=== PATIENT | female | born 1985 | race Two or more races ===

== ENCOUNTER → 2024-07-03 | Outpatient (CLI) | payer MEDICAID, SELFPAY ==
--- NOTE | 2024-07-03 16:00 | XR_ITS ---
Examination: Breast ultrasound, unilateral, left complete Date and time of exam: July 03, 2024 1542 hours INDICATIONS: Left breast pain 1.5 years, 2:00 nodule 8 mm 10:00 nodule 8 mm 10:00 nodule 4 mm retroareolar nodule 8 mm on ultrasound August 26, 2023 Technique: Real-time burk scale ultrasonographic imaging performed left breast including all 4 quadrants as well as nipple retroareolar and axillary region. Findings: 2:00 oval mass lobular margins 8 x 4 x 7 mm 10:00 cyst 4 x 3 x 4 mm IMPRESSION: BI-RADS Category 3: Probably benign findings Recommend 1 additional 6 month left breast sonogram follow-up to document stability of 2:00 nodule described above
== END | disposition home or self-care (01) ==
LOC: CDIM 15:30
PROVIDERS: PCP Physician Assistant; Referring Provider Physician Assistant; Visit Provider Physician Assistant
DX: N63.21 Unspecified lump in the left breast, upper outer quadrant (principal)
CPT/HCPCS: 76641

== ENCOUNTER → 2024-09-14 | Outpatient (CLI) | payer MEDICAID, SELFPAY ==
--- NOTE | 2024-09-14 15:30 | XR_ITS ---
Examination: Screening digital mammography, bilateral Computer aided detection 3-D breast Tomosynthesis, bilateral Date and time of exam: September 14, 2024 1715 hours Comparison July 14, 2023 Indication: Screening Technique: Nonmagnified MLO, CC views of the breasts to been obtained, reconstructed from 3-D Tomosynthesis images. R2 computer aided detection program utilized for evaluation of suspicious masses and/or abnormal calcifications. 3-D Tomosynthesis images obtained. Findings: The breasts are heterogeneously dense, which may obscure small masses Benign calcifications No interval suspicious masses Impression: BI-RADS category II: Benign Findings. Recommend 1 year follow-up mammogram.
== END | disposition home or self-care (01) ==
LOC: CDIM 14:57
PROVIDERS: Referring Provider Physician Assistant; Visit Provider Physician Assistant
DX: Z12.31 Encounter for screening mammogram for malignant neoplasm of breast (principal); R92.323 Mammographic fibroglandular density, bilateral breasts; R92.1 Mammographic calcification found on diagnostic imaging of breast
CPT/HCPCS: 77063; 77067

== ENCOUNTER → 2025-03-07 | Outpatient (CLI) | payer MEDICAID, SELFPAY ==
--- NOTE | 2025-03-07 14:30 | XR_ITS ---
Examination: Breast ultrasound, unilateral, left complete Date and time of exam: March 07, 2025, 1439 hours INDICATIONS: 2:00 nodule 8 x 7 mm on left breast sonogram July 03, 2024. Technique: Real-time burk scale ultrasonographic imaging performed left breast including all 4 quadrants as well as nipple retroareolar and axillary region. Findings: 2:00 nodule circumscribed 9 x 7 mm 10:00 cyst 2 x 3 mm IMPRESSION: BI-RADS Category 2: Benign findings
== END | disposition home or self-care (01) ==
PROVIDERS: PCP Physician Assistant; Referring Provider Physician Assistant; Visit Provider Physician Assistant
DX: N63.21 Unspecified lump in the left breast, upper outer quadrant (principal)
CPT/HCPCS: 76641

== ENCOUNTER 2025-05-19 20:50 | Emergency (ER) | payer MEDICAID, SELFPAY ==
[2025-05-19 20:58] VITALS: BP 172/95; PULSE 94; RESP 18; TEMP 36.9; O2SAT 98; BMI 26.4
--- NOTE | 2025-05-19 21:11 | EKG_ITS ---
[facility] Test Date: 2025-05-19 Pat Name: ESTELA DON Department: Room: - Gender: Female [employer]: : 1985 Requested By: Emiliano Talbert Order Number: [id number] Reading MD: Emiliano Talbert Measurements Intervals [place] Rate: 76 P: 38 LA: 134 QRS: 65 QRSD: 90 T: 43 QT: 354 QTc: 400 Interpretive Statements SINUS RHYTHM No previous ECG available for comparison /store/S0/[id number].pdf
--- NOTE | 2025-05-19 21:11 | PD.EDRME ---
Rapid Medical Screening Exam RME Arrival date/time: 05/19/25 20:50 This is a case of 40-year-old female with history of diabetes came in in the emergency room due to chest pain headache dizziness ear pain and sore throat today persistence of the symptoms this patient decided to stop consult here in the emergency room Chief Complaint: Dizziness Time Seen by Provider: 05/19/25 20:52 Vital signs: Vital Signs Temperature 98.5 F 05/19/25 20:58 Pulse Rate 94 05/19/25 20:58 Respiratory Rate 18 05/19/25 20:58 Blood Pressure 172/95 H 05/19/25 20:58 Pulse Oximetry (%) 98 05/19/25 20:58 Oxygen Delivery Method Room Air 05/19/25 20:58 Exam: Neurological exam is normal awake alert oriented x 4 no focal deficit GCS 15/15 steady gait heart normal rate regular rhythm no murmur clear breath sound Clinical Impression: Dizziness chest pain
[2025-05-19 21:52] LABS: Basophils # (Auto) 0.1 Thou/mm3 (0.0-0.2); Basophils % (Auto) 1 % (0-2.5); Eosinophils # (Auto) 0.1 Thou/mm3 (0.0-0.5); Eosinophils % (Auto) 1 % (0-10); Hematocrit 32.8 % (36.0-46.0); Hemoglobin 10.1 g/dL (12.0-16.0); Immature Granulocytes Auto 0.10 Thou/mm3 (0.00-0.00); Lymphocytes # (Auto) 2.4 Thou/mm3 (1.0-4.8); Lymphocytes % (Auto) 17 % (10-50); Mean Corpuscular HGB Conc 30.8 g/dl (31.0-37.0); Mean Corpuscular Hemoglobin 22.9 pg (25.0-35.0); Mean Corpuscular Volume 74 fL (80-100); Monocytes # (Auto) 0.8 Thou/mm3 (0.0-0.8); Monocytes % (Auto) 6 % (0-12); Neutrophils # (Auto) 10.3 Thou/mm3 (1.8-7.7); Neutrophils % (Auto) 75 % (37-80); Nucleated Red Blood Cell # 0.02 Thou/mm3 (0.00-0.00); Nucleated Red Blood Cell % 0 /100 WBC (0); Platelet Count 399 Thou/mm3 (140-440); RDW Standard Deviation 46.3 fL (36.4-46.3); Red Blood Count 4.42 Miln/mm3 (4.00-5.20); White Blood Count 13.8 Thou/mm3 (3.6-11.0)
[2025-05-19 22:13] LABS: Alanine Aminotransferase 17 U/L (10-49); Albumin, Serum 4.8 gm/dL (3.5-5.0); Albumin/Globulin Ratio 1.7 (1.2-2.2); Alkaline Phosphatase 59 U/L (46-116); Anion Gap 11 (7-16); Aspartate Amino Transferase 24 U/L (0-34); BUN/Creatinine Ratio 10 Ratio (12-20); Bilirubin,Total 0.3 mg/dL (0.3-1.2); Blood Urea Nitrogen 6 mg/dL (9-23); Calcium 9.8 mg/dL (8.3-10.6); Calcium (Corrected) 9.8 mg/dL (8.5-10.1); Carbon Dioxide 22.9 mMol/L (20.0-31.0); Chloride 108 mMol/L (98-107); Creatinine (Component) 0.6 mg/dL (0.6-1.3); Estimated Creatinine Clearance 104.3 mL/min (>60); Globulin 2.8 gm/dL (2.3-3.5); Glucose 123 mg/dL (74-106); Osmolality,Calculated 281 (275-295); Potassium 3.9 mMol/L (3.4-5.1); Sodium 142 mMol/L (136-145); Total Protein 7.6 gm/dL (5.7-8.2); Troponin I < 0.002 ng/mL (0.0-0.045); eGFR > 60 See Note
[2025-05-19 22:42] LABS: Collection Type, Urine Clean Catch
--- NOTE | 2025-05-19 22:42 | PD.EDDIZZY ---
ED Dizzyness RME/HPI General Chief Complaint: Dizziness Stated Complaint: DIZZINESS, SOB, TIGHTNESS TO THROAT, LEFT EAR Time Seen by Provider: 05/19/25 20:52 Arrival date/time: 05/19/25 20:50 RME / HPI RME / HPI Narrative: 05/19/25 20:50 This is a case of 40-year-old female with history of diabetes came in in the emergency room due to chest pain headache dizziness ear pain and sore throat today persistence of the symptoms this patient decided to stop consult here in the emergency room DR. BLANKENSHIP MAIN ED EVALUATION: Patient presenting with intermittent lightheadedness throughout the week with associated palpitations, no chest pains, now presents with throat constricting sensation with slight difficulty swallowing and mild difficulty breathing. No fever, chills, vomiting or diarrhea. No LE swelling. Denies any recent change in diet, medication, lotions, or cosmetics. PMH: Type II DM, HTN PSH: Allergies: NKDA Social: Negative Exam: Neurological exam is normal awake alert oriented x 4 no focal deficit GCS 15/15 steady gait heart normal rate regular rhythm no murmur clear breath sound Impression: Dizziness chest pain Related Data Home Medications ?Medication ?Instructions ?Recorded ?Confirmed vit,calcium 128-iron fum 1 tab PO QDAY 11/06/21 12/10/21 28 mg iron-folic acid 800 mcg tablet metformin 500 mg tablet 500 mg PO BID 12/10/21 12/10/21 Previous Rx's ?Medication ?Instructions ?Recorded acetaminophen 120 mg-codeine 12 5 ml PO Q6H PRN pain #120 mL 05/20/25 mg/5 mL oral solution prednisolone 15 mg/5 mL oral 45 mg (15 mL) PO QDAY 5 days #75 mL 05/20/25 solution Allergies Allergy/AdvReac Type Severity Reaction Status Date / Time No Known Allergies Allergy Verified 05/19/25 20:52 Review of Systems Review of Systems Systems Reviewed: All systems reviewed, normal except as documented Past Medical History Past Medical History CARDIAC: Positive Hypertension REPRODUCTIVE: Positive Previous Pregnancies ENDOCRINE: Positive Diabetes Mellitus Type 2 OTHER HISTORY: Positive Hospitalization (CHILDBIRTH) Surgical History SURGICAL: Positive Section ED Exam Narrative Physical exam: GEN. APPEARANCE: The patient is alert awake oriented X-3 mildly tachycardic c/o throat constriction Patient has good eye contact. Patient is cooperative. VITALS: All vitals were reviewed and the pulse ox is 98%, which is normal according to my interpretation HEENT: Normocephalic, Posterior pharyngeal injection with erythematous vesicles, no stridor, mildly tender submandibular right adenopathy. Pupils are equal and reactive. Oral mucosa is moist. NECK: Supple, nontender, no meningismus, no JVD. There is no thyromegaly and no lymphadenopathy. CHEST: Nontender on palpation no deformity and no crepitus. CARDIOVASCULAR: Tachycardic, no murmur or gallop rub or extra beats. LUNGS: Clear to auscultation bilaterally with symmetrical chest rise. No laboring tachypnea or wheezing. No intercostal subcostal retraction. No rales and no rhonchi. ABDOMEN: Soft, flat, nontender to palpation, no guarding or rebound tenderness. There are no abnormal masses palpated. No pulsatile masses or bruits. Active and normal bowel sounds. EXTREMITIES: Normal inspection and palpation. No edema. No cyanosis. Patient is able to move all 4 extremities well SKIN: Warm and dry, no rashes noted. MUSCULOSKELETAL: No lumbar or midline bony tenderness. There is no edema or calf tenderness. No paraspinal muscle spasm or tenderness. NEURO: Cranial nerves II through XII grossly intact. There are no focal neurologic deficits noted. GCS is 15 PSYCHIATRIC: Patient is in normal mood and affect, cooperative. LYMPHATICS: No major lymphadenopathy noted. Course Quality Measures none Orders Category Date Time Status EKG (ED ONLY) *Do not use* NOW Care 05/19/25 21:11 Completed EKG (ED Only) Stat Exams 05/19/25 21:11 Ordered XR chest 1V portable Stat Exams 05/19/25 23:16 Completed CBC Stat Lab 05/19/25 21:32 Completed CBC Stat Lab 05/19/25 23:40 Completed Comprehensive Metabolic Panel Stat Lab 05/19/25 21:32 Completed Drug Screen,Urine Stat Lab 05/19/25 22:21 Completed HCG Qualitative,Urine Stat Lab 05/19/25 22:21 Completed Influenza A & B Rapid Panel Stat Lab 05/19/25 23:00 Completed Magnesium Stat Lab 05/19/25 23:40 Completed Troponin I Stat Lab 05/19/25 21:32 Completed Troponin I Stat Lab 05/19/25 23:40 Completed Urinalysis Stat Lab 05/19/25 22:21 Completed Dexamethasone Inj [Decadron Inj] Med 05/19/25 23:14 Discontinued 10 mg IVP X1 ONE Sodium Chloride 0.9% 1000 ml [Ns] 1,000 ml Med 05/19/25 23:14 Discontinued IV 999 mls/hr Vital Signs Vital signs: Vital Signs Temperature 98.5 F 05/19/25 20:58 Pulse Rate 94 05/19/25 20:58 Respiratory Rate 18 05/19/25 20:58 Blood Pressure 172/95 H 05/19/25 20:58 Pulse Oximetry (%) 98 05/19/25 20:58 Oxygen Delivery Method Room Air 05/19/25 20:58 Dizziness MDM Narrative MDM Narrative:: Scribe Attestation: Brooklyn Osorio, am scribing for and in the presence of Dr. Davila. Provider Notation: Although this document has been carefully reviewed, there may still be some phonetic and other typographical errors. These errors are purely grammatical due to imperfections in the software program and should not be construed in any way to compromise the substance of the patient's medical care during this visit. Patient presenting with intermittent lightheadedness throughout the week with associated palpitations, no chest pains, now presents with throat constricting sensation with slight difficulty swallowing and mild difficulty breathing. No fever, chills, vomiting or diarrhea. Please see PE findings. Laboratory markers, including CBC, serum chemistries, and UA were unremarkable. CXR was unremarkable. Patient was treated with IV steroids fluids and remained otherwise stable throughout ED course. Baseline EKG without brugada, long QT interval, or arrhythmia. Additionally no findings of accessory pathway. Suspect throat constricting sensation due to viral infection, based on oropharygeal findings. Patient was observed for an extended period of time and considered stable for discharge. Will be discharged to home on Prelone and Tylenol with Codeine for symptomatic viral URI, recommend outpatient F/U for Echo/Holter. Final diagnoses include Acute viral pharyngitis and Palpitations. Patient data External records reviewed:: [facility] previous records (No prior ED records available for review) Clinical information provided by:: patient Social determinants that could affect healthcare access:: none Patient has the following chronic illnesses:: Type II DM, HTN How is presenting disease/condition affected by chronic disease/condition?: exacerbated by Evaluation data The following diagnostics were reviewed and interpreted by me:: lab results, radiology exam(s) and EKG tracing(s) (EKG at 21:19 shows normal sinus rhythm at 76, normal axis, no ectopy, no signs of acute ischemia, per my interpretation.) Lab and/or radiology exams considered but not ordered:: None Interpretation Summary: RADIOLOGY Chest X-Ray: FINDINGS: Normal heart size Lungs are clear The osseous structures are intact IMPRESSION: No active disease Medications / Prescriptions Medications or Prescriptions considered but not ordered:: None Medication administrations:: Medication Administration History Discontinued Medications Dexamethasone Sodium Phosphate (Dexamethasone Sod Phos Inj 10 Mg/Ml Vial) 10 mg IVP X1 ONE Stop: 05/19/25 23:15 Last Admin: 05/19/25 23:43 Dose: 10 mg Documented By: ADRIA Sodium Chloride (Ns) 1,000 mls @ 999 mls/hr IV .Q1H1M ONE Stop: 05/20/25 00:14 Last Infusion: 05/20/25 00:44 Dose: Infused Documented By: Admin: 05/19/25 23:43 Dose: 999 mls/hr Documented By: DT See above if any Consultations Consultation(s) initiated? (list below): No Diagnosis Dizziness Differential Diagnosis: benign paroxysmal positional vertigo, orthostatic hypotension, acute vestibular neuronitis and other (Sepsis, Dehydration, Pharyngitis, Laryngitis) Most likely diagnosis given after review of the tests above:: Acute viral pharyngitis, Palpitations Admission Indicated Admission indicated?: not indicated Explain why admission is indicated or not indicated:: Patient does not meet admission criteria Admission Request Was there a request for admission?: No Disposition Plan Disposition Plan: Discharge Discharge Attestation Discharge Attestation: The patient and all family members were given an opportunity to ask questions and understood the discharge instructions. Discharge instructions specifically effects, indications for sooner follow up or return to the emergency department, and the expected course of current diagnosis. Patient condition: Stable Critical Care Time Critical Care Time Critical Care Time: No Discharge Plan Plan Patient Disposition: HOME (Self Care) Discharge Disposition comment: Stable Prescriptions/Referrals Prescriptions/Med Rec: New prednisolone 15 mg/5 mL solution 45 mg PO QDAY 5 Days Qty: 75 0RF acetaminophen-codeine 120-12 mg/5 mL solution 5 ml PO Q6H PRN (Reason: pain) Qty: 120 0RF No Action metformin 500 mg Tablet 500 mg PO BID vit no.[id number] 28 mg iron- 800 mcg Tablet 1 tab PO QDAY Referrals: Nely Chavarria PA-C [Primary Care Provider] - In 1 week Problem List Clinical Impression: Acute viral pharyngitis, Palpitations Impression comment: Viral pharyngitis/palpitations Patient/Caregiver Discharge Instructions Discharge Activity: activity as tolerated Diet Instructions: Clear liquid diet x 24 hours and advance as tolerated. Education Materials: ED Palpitations, ED Pharyngitis, Report Pending Additional Instructions: Medication as directed. Increase fluids. Follow-up with primary care doctor for referral to [facility] for outpatient Holter echocardiography. Print Language: Belgian Stand Alone Forms: Joanie Award Info., Patient Portal Info Letter
[2025-05-19 22:52] VITALS: BP 118/86; PULSE 79; RESP 14; O2SAT 99
[2025-05-19 22:53] LABS: Bilirubin,Urine Negative (Negative); Blood,Urine Negative (Negative); Clarity,Urine Clear (Clear/Hazy); Color,Urine Colorless (Lt Yel-Yel); Glucose, Urine Negative (Negative); Ketones,Urine Negative (Negative); Leukocyte Esterase,Urine Negative (Negative); Nitrite,Urine Negative (Negative); PH,Urine 6.5 (5.0-7.0); Protein,Urine Negative (Neg - Trace); RBC,Urine < 1 /hpf (0-3); Specific Gravity,Urine 1.006 (1.001-1.035); Squamous Epithelial Cell,Urine 1 /hpf (0-5); Urobilinogen,Urine Negative mg/dL (0.0-1.0); WBC,Urine < 1 /hpf (0-5)
[2025-05-19 22:56] LABS: HCG Qualitative,Urine Negative
--- NOTE | 2025-05-19 23:16 | XR_ITS ---
EXAMINATION: AP chest single view TECHNIQUE: AP portable upright chest single view Date and time: May 19, 2025, 11:18 p.m. INDICATION: Chest pain today. FINDINGS: Normal heart size Lungs are clear The osseous structures are intact IMPRESSION: No active disease
[2025-05-19] MEDS: SODIUM CHLORIDE 0.9% 1000 ML 1,000 ML 999 ML IV (23:43)
[2025-05-19] MEDS: DEXAMETHASONE SOD PHOS INJ 10 MG/ML VIAL IVP (23:43)
[2025-05-19 23:47] LABS: Influenza A Ag Negative; Influenza B Ag Negative
[2025-05-19 23:49] LABS: Basophils # (Auto) 0.1 Thou/mm3 (0.0-0.2); Basophils % (Auto) 1 % (0-2.5); Eosinophils # (Auto) 0.0 Thou/mm3 (0.0-0.5); Eosinophils % (Auto) 0 % (0-10); Hematocrit 30.5 % (36.0-46.0); Hemoglobin 9.5 g/dL (12.0-16.0); Immature Granulocytes Auto 0.08 Thou/mm3 (0.00-0.00); Lymphocytes # (Auto) 1.7 Thou/mm3 (1.0-4.8); Lymphocytes % (Auto) 15 % (10-50); Mean Corpuscular HGB Conc 31.1 g/dl (31.0-37.0); Mean Corpuscular Hemoglobin 23.1 pg (25.0-35.0); Mean Corpuscular Volume 74 fL (80-100); Monocytes # (Auto) 0.5 Thou/mm3 (0.0-0.8); Monocytes % (Auto) 5 % (0-12); Neutrophils # (Auto) 8.5 Thou/mm3 (1.8-7.7); Neutrophils % (Auto) 78 % (37-80); Nucleated Red Blood Cell # 0.00 Thou/mm3 (0.00-0.00); Nucleated Red Blood Cell % 0 /100 WBC (0); Platelet Count 319 Thou/mm3 (140-440); RDW Standard Deviation 46.5 fL (36.4-46.3); Red Blood Count 4.11 Miln/mm3 (4.00-5.20); White Blood Count 10.9 Thou/mm3 (3.6-11.0)
[2025-05-20 00:10] LABS: Amphetamine/Methamp Scrn,U Negative (Negative); Barbiturate Screen,Urine Negative (Negative); Benzodiazepines Screen,Urine Negative (Negative); Benzoylecgonine Screen, Ur Negative (Negative); Fentanyl Screen,Urine Negative (Negative); Opiate Screen,Urine Negative (Negative); THC Screen,Urine Negative (Negative)
[2025-05-20 00:33] VITALS: BP 119/75; PULSE 90; RESP 17; TEMP 37.2; O2SAT 100
[2025-05-20 00:50] LABS: Magnesium 2.0 mg/dL (1.6-2.6); Troponin I < 0.002 ng/mL (0.0-0.045)
== END 2025-05-20 01:15 | disposition home or self-care (01) ==
PROVIDERS: Nurse Practitioner Family; Emergency Provider Emergency Medicine; PCP Physician Assistant
DX: J02.8 Acute pharyngitis due to other specified organisms (principal); R00.2 Palpitations
CPT/HCPCS: 36415; 71045; 80053; 80307; 81001; 81025; 83735; 84484; 85025; 87502; 93005; 96361; 96374; 99284; J1100; J7030